=== PATIENT | male | born 1945 | race African-American/Black ===

== ENCOUNTER 2025-04-13 03:17 | Emergency (ER) | payer MEDICARE ==
[~2025-04-13] VITALS: Ht 162.6 cm; Wt 77.2 kg
--- NOTE | 2025-04-13 03:30 | Physician Documentation ---
History of Present Illness General Chief Complaint: Abdominal Pain Stated Complaint: ABD PAIN Time Seen by MD: 03:29 History of Present Illness Initial Comments The patient is a 79-year-old male brought in by EMS after he developed abdominal pain in the left lower abdomen. Patient states about 45 minutes prior to his arrival in the emergency room he developed abdominal pain that he states was severe in the left lower abdomen he states he believes it is secondary to hernia that he was diagnosed with in the past. The patient has had episodes of the pain in the left lower abdomen and has a an appointment scheduled with the surgeon then May. The pain had resolved by the time the paramedics arrived he states the pain had gone from extreme to 06/15. Patient denies any previous history of surgery for hernia. The patient denies any recent fevers or chills he denies any nausea or vomiting. Medication Reconciliation Allergies: Coded Allergies: No Known Allergies (Unverified , 04/13/25) Past Medical History Past Medical History: Hypertension, Pulmonary Fibrosis, Rheumatoid Arthritis Review of Systems All Other Systems at this time: Reviewed and Negative Physical Exam Physical Exam Vital Signs: Temperature: 97.7, Source: Oral, Heart Rate: 62, Respiratory Rate: 15, BP: 180/79, Pulse Oximetry: 95, Weight: 77.200 Physical Exam VITALS: Reviewed and as above. GENERAL: Alert, no apparent distress. HEENT: Normocephalic, atraumatic, PERRL, EOMI, dry mucosa, no erythema RESPIRATORY: Lungs clear, normal breath sounds, no respiratory distress. CHEST: No accessory muscle use, no retractions CV: Regular rate, rhythm, no edema, no murmur, No: JVD GI: Soft, non-tender, bowels sounds present, no rebound, guarding, or rigidity the patient does have a small bulge in the inguinal canal when he coughs or bears down. No mass in the inguinal canal otherwise BACK: No CVA tenderness, or swelling MUSCULOSKELETAL: No deformities, no edema SKIN: Warm and dry, no rash NEURO: Oriented x4, No motor or sensory deficit PSYCH: Normal mood and affect, no agitation Progress Results/Orders Results/Orders Vital Signs 04/13/25 04/13/25 04/13/25 03:21 03:30 04:04 Temp 97.7 97.9 Pulse 62 72 Resp 15 18 14 B/P (MAP) 180/79 177/89 Pulse Ox 95 99 Medical Decision Making Additional information obtaine: old records Findings The patient had pain consistent with a left inguinal hernia that possibly self reduced, the patient on exam has a bulge only when he bears down in the inguinal canal he has no mass that is firm or in need of reduction, patient states pain is improved. The patient is otherwise nontoxic prior hospitalizations has been reviewed. The patient has been advised that if he develops a bulge in that area that he should try and reduce it himself he has also been advised to follow up with the surgeon. The patient's pulse oximetry was interpreted as normal and adequate. Differential Diagnosis Colitis, diverticulitis, renal colic, hernia Departure Impression: Primary Impression: Inguinal hernia Qualified Codes: K40.91 - Unilateral inguinal hernia, without obstruction or gangrene, recurrent Additional Instructions: If you feel a bulge in that left inguinal region gently apply upward firm pressure, follow up with Dr. Yu as soon as possible. Return for worsening of your symptoms Referrals: NO PRIMARY CARE PROVIDER (PCP) CORBY YU MD Signature Scribe Signature: no scribe Attestation: The note accurately reflects work and decisions made by me.Anam Laurent MD 04/14/25 04:35 ANAM LAURENT MD Apr 13, 2025 03:30
[2025-04-13 04:04] VITALS: BP 177/89; PULSE 72; RESP 14; TEMP 97.9; O2SAT 99
== END 2025-04-13 04:08 | disposition home or self-care (01) ==
LOC: ER 03:19
DX: K40.90 Unilateral inguinal hernia, without obstruction or gangrene, not specified as recurrent (principal); I10 Essential (primary) hypertension
CPT/HCPCS: 99283